=== PATIENT | male | born 1960 | race Caucasian/White ===

== ENCOUNTER 2018-01-08 16:08 | Emergency (ER) | payer OTHER ==
--- NOTE | 2018-01-08 17:29 | ED Physician Documentation ---
PD HPI HEADACHE - Stated complaint Stated Complaint: FERNANDES - Chief complaint Chief Complaint: Neuro - History obtained from History obtained from: Patient - History of Present Illness Timing - onset: Today Timing - onset during: Light activity Timing - details: Abrupt onset, Still present Worst headache ever?: No: Worst headache ever? Location: Left Quality: Throbbing, Aching Associated symptoms: Nausea. No: Fever, Stiff neck, Vomiting, Weakness, Vision changes Worsened by: No: Light Contributing factors: No: Recent illness, Trauma Similar symptoms before: Diagnosis (history of migraines that typically respond to Imitrex and Ibuprofen. He is on business trip to here and did not pack his Imitrex by accident.) Recently seen: Not recently seen Review of Systems Constitutional: denies: Fever, Chills Eyes: denies: Loss of vision, Decreased vision Nose: denies: Rhinorrhea / runny nose, Congestion Throat: denies: Sore throat Cardiac: denies: Chest pain / pressure Respiratory: denies: Cough GI: reports: Nausea. denies: Abdominal Pain, Vomiting Neurologic: reports: Headache. denies: Focal weakness, Numbness, Altered mental status, Head injury PD PAST MEDICAL HISTORY - Past Medical History Past Medical History: No Cardiovascular: None Respiratory: None Neuro: Migraines Endocrine/Autoimmune: None GI: None : None HEENT: None Psych: None Musculoskeletal: None Derm: None - Past Surgical History Past Surgical History: Yes General: Cholecystectomy - Present Medications Home Medications: Ambulatory Orders Medication Instructions Recorded Confirmed Gabapentin 300 mg PO 01/08/18 SUMAtriptan succinate [Sumatriptan 100 mg PO ONCE PRN #3 tablet 01/08/18 Succinate] Sumatriptan Succinate [Imitrex] 6 mg SQ 01/08/18 Sumatriptan Succinate [Imitrex] 100 mg 01/08/18 - Allergies Allergies/Adverse Reactions: Allergies Allergy/AdvReac Type Severity Reaction Status Date / Time No Known Drug Allergies Allergy Verified 01/08/18 16:15 - Social History Does the pt smoke?: No Smoking Status: Never smoker Does the pt drink ETOH?: Yes Does the pt have substance abuse?: No - Immunizations Immunizations are current?: Yes - POLST Patient has POLST: No PD ED PE NORMAL - Vitals Vital signs reviewed: Yes - General General: Alert and oriented X 3, Well developed/nourished - HEENT HEENT: Atraumatic, Pharynx benign - Neck Neck: Supple, no meningeal sign, No adenopathy - Cardiac Cardiac: RRR, No murmur - Respiratory Respiratory: Clear bilaterally - Derm Derm: Normal color, Warm and dry - Neuro Neuro: Alert and oriented X 3, No motor deficit, Normal speech Eye Opening: Spontaneous Motor: Obeys Commands Verbal: Oriented GCS Score: 15 Results - Vitals Vitals: Oxygen O2 Source Room air PD MEDICAL DECISION MAKING - ED course Complexity details: re-evaluated patient (improved with meds here), considered differential, d/w patient Departure - Departure Disposition: Home, Self Care Clinical Impression: Migraine headache without aura Qualifiers: Status migrainosus presence: without status migrainosus Intractability: not intractable Qualified Code(s): G43.009 - Migraine without aura, not intractable, without status migrainosus Condition: Stable Record reviewed to determine appropriate education?: Yes Instructions: ED Headache Migraine Prescriptions: SUMAtriptan succinate [Sumatriptan Succinate] 100 mg PO ONCE PRN #3 tablet PRN Reason: Migraine Comments: Drink lots of fluids. Continue usual medications. Repeat the Imitrex if needed. Follow-up back at home as needed. Discharge Date/Time: 01/08/18 18:42
[2018-01-08] MEDS ORDERED: KETOROLAC 30 MG/ML VIAL IM STA (17:45)
[2018-01-08] MEDS ORDERED: SUMAtriptan 6 MG/0.5 ML VIAL SUBQ STA (17:45)
[2018-01-08 18:42] VITALS: BP 150/72
== END 2018-01-08 18:42 | disposition home or self-care (01) ==
LOC: ED 16:08
DX: G43.009 Migraine without aura, not intractable, without status migrainosus (principal)
CPT/HCPCS: 96372; 99283